=== PATIENT | female | born 1995 | race African-American/Black ===

== ENCOUNTER 2016-09-29 16:53 | Emergency (ER) | payer OTHER ==
[~2016-09-29] VITALS: Ht 172.7 cm; Wt 97.5 kg
[~2016-09-29 16:53] MED LIST: HYDR-971 PO; SULF1TAB24 PO
[2016-09-29 17:35] VITALS: BP 121/64
--- NOTE | 2016-09-29 17:51 | PHYS DOC ---
Past Medical History Past Medical History: Other Additional Past Medical Histor: boils Past Surgical History: No Surgical History Alcohol Use: None Drug Use: Marijuana Adult General Chief Complaint Chief Complaint: KNEE INJURY HPI HPI Patient is a 21 year old female presents to the emergency department stating [facility] she injured her right knee. She states that she has having pain on the medial posterior side of the knee area. She states increased difficulty with straightening it. She has not taken anything for pain and discomfort. She denies any numbness or tingling down to the lower extremity. Patient denies any previous injuries to the knee. Review of Systems Review of Systems Constitutional: Denies fever or chills [] Eyes: Denies change in visual acuity, redness, or eye pain [] HENT: Denies nasal congestion or sore throat [] Respiratory: Denies cough or shortness of breath [] Cardiovascular: No additional information not addressed in HPI [] GI: Denies abdominal pain, nausea, vomiting, bloody stools or diarrhea [] : Denies dysuria or hematuria [] Musculoskeletal: Denies back pain. Right knee pain Integument: Denies rash or skin lesions [] Neurologic: Denies headache, focal weakness or sensory changes [] Endocrine: Denies polyuria or polydipsia [] Allergies Allergies Allergies Coded Allergies Type Severity Reaction Last Updated Verified shellfish derived Allergy Severe "My throat closes" 09/29/16 Yes latex Allergy Intermediate 09/29/16 Yes Physical Exam Physical Exam Constitutional: Well developed, well nourished, no acute distress, non-toxic appearance. [] HENT: Normocephalic, atraumatic, bilateral external ears normal, oropharynx moist, no oral exudates, nose normal. [] Eyes: PERRLA, EOMI, conjunctiva normal, no discharge. [] Neck: Normal range of motion, no tenderness, supple, no stridor. [] Cardiovascular:Heart rate regular rhythm, no murmur [] Lungs & Thorax: Bilateral breath sounds clear to auscultation [] Skin: Warm, dry, no erythema, no rash. [] Back: No tenderness Extremities: right medial posterior knee tenderness, no cyanosis, no clubbing, ROM intact, no edema. No redness no bruising or discoloration noted. Peripheral pulses 2+ cap refill brisk less than 2 seconds. Neurologic: Alert and oriented X 3, normal motor function, normal sensory function, no focal deficits noted. [] Psychologic: Affect normal, judgement normal, mood normal. [] Current Patient Data Vital Signs Vital Signs Date Time Temp Pulse Resp B/P (MAP) Pulse Ox O2 Delivery O2 Flow Rate FiO2 09/29/16 17:35 98.1 72 16 95 Room Air 98.1 EKG EKG [] Radiology/Procedures Radiology/Procedures [] Course & Med Decision Making Course & Med Decision Making Pertinent Labs and Imaging studies reviewed. (See chart for details) X-rays negative for any bony abnormalities per Dr. Jones. Patient will be placed in a knee immobilizer with recommendations to follow-up with orthopedic. Recommended Tylenol and ibuprofen for pain and discomfort. Ice packs on 20 minutes off 20 minutes several times a day. Elevation as much as possible. Patient agrees with discharge instructions, treatment regimens and follow-up recommendations. Since symptoms to return back to emergency department as been provided. [] Dragon Disclaimer Dragon Disclaimer This electronic medical record was generated, in whole or in part, using a voice recognition dictation system. Departure Departure Impression: Primary Impression: Right knee pain Disposition: HOME, SELF-CARE Condition: STABLE Referrals: MERIS[facility]S [employer] [facility] [employer]PERATOR (PCP) MARISSA MERAZ II, MD Patient Instructions: Knee Immobilizer, [id number], Knee Pain, [id number], RICE - Routine Care for Injuries, [id number] Additional Instructions: Activity as tolerated. Ice packs on 20 minutes off 20 minutes several times a day. Elevation as much as possible. Wear the knee immobilizer today follow-up with orthopedic. Tylenol or ibuprofen for pain and discomfort. Follow-up with orthopedic within the next week. Return back to emergency prior signs symptoms of become worse. KATIE VANESSA BARN BOSS Sep 29, 2016 17:51
--- NOTE | 2016-09-30 07:35 | RAD ---
Exam: Right knee radiograph 09/29/2016 at 1717 hours Indication: Volleyball injury. Medial and posterior knee pain Comparison: None available Technique: 4 views of the right knee are provided. Findings: There is no acute fracture or dislocation. No knee joint effusion. No joint space narrowing. No soft tissue swelling. No osseous erosion or soft tissue gas. Bone mineralization is within normal limits. Impression: No acute fracture or dislocation.
== END 2016-09-29 18:14 | disposition home or self-care (01) ==
LOC: ER 16:53
DX: M25.561 Pain in right knee (principal); Z91.013 Allergy to seafood; Z91.040 Latex allergy status
CPT/HCPCS: 29505; 73564; 99284-25

== ENCOUNTER → 2016-10-25 | Outpatient (CLI) | payer OTHER ==
[2016-09-29 17:35] VITALS: BP 121/64
--- NOTE | 2016-10-25 10:26 | KCIC ---
Examination: MRI of the right knee without contrast HISTORY: History of right knee pain in the medial lateral aspect, volleyball injury, swelling COMPARISON: None available TECHNIQUE: Multiple, multisequence MR imaging of the right knee was performed without contrast FINDINGS: There is increased signal identified in the mid and proximal portion of the anterior cruciate ligament likely tear of the anterior cruciate ligament. The posterior cruciate ligament appear intact. The medial meniscus, lateral meniscus appear intact. The medial collateral ligament is intact. The lateral collateral ligamentous complex including the fibular collateral ligament complex femoris tendon, popliteus tendon appear intact. There is moderate patchy T2 signal identified in the posterior aspect of the medial, lateral tibial plateaus. The extensor mechanism is intact. Small knee joint effusion is identified. The medial retinaculum, lateral retinaculum appear intact. The cartilage in the medial, lateral, patellofemoral compartments grossly appears unremarkable. IMPRESSION: 1. Tear of the anterior cruciate ligament. 2. Moderate trabecular edema identified in the posterior medial and lateral tibial plateaus likely bone marrow contusions secondary to ACL tear. 3. Small knee joint effusion. Electronically signed by: Ramses Ontiveros MD (10/25/2016 10:23 AM) [id number]
== END | disposition home or self-care (01) ==
LOC: KCIC MRI 08:36
PROVIDERS: ATTEND Orthopaedic Surgery
DX: S83.511A Sprain of anterior cruciate ligament of right knee, initial encounter (principal); X58.XXXA Exposure to other specified factors, initial encounter; Y93.89 Activity, other specified; Y92.89 Other specified places as the place of occurrence of the external cause; Y99.8 Other external cause status
CPT/HCPCS: 73721